=== PATIENT | male | born 1980 ===

== ENCOUNTER → 2018-04-02 | Outpatient (CLI) | payer OTHER ==
[~2018-04-02] MED LIST: MELA3TAB2 PO; METH27TA5 PO
--- NOTE | 2018-04-04 04:17 | PAIN ---
DATE OF SERVICE: 04/03/2018 INITIAL CONSULTATION FOR PAIN CLINIC CHIEF COMPLAINT: Low back and left lower extremity pain. HISTORY OF PRESENT ILLNESS: This is a 38-year-old male who presents with history of pain for about 18 months, not a result of any specific injury or action he is aware of, but pain in the low back, left lower extremity, mostly in the left posterior gluteus, posterior lateral thigh, lateral anterior thigh, medial thigh, medial lower leg on the left side, is worse with walking, standing, change in positions, describes it as constant, sharp, stabbing, throbbing, shooting, radiating, changes during the day, worse with activity, can be debilitating when it flares up. The patient reports it awakens him from sleep once or twice at night, does not affect his bowel or bladder control, does affect his ability to walk fairly significantly. He is not using any assistive devices, however, to ambulate. The patient has had chiropractic treatment as well as some exercises that he does every day and reports does feel better after chiropractic manipulations, but only for about 3-4 hours. The patient has tried Tylenol, Flexeril and another muscle relaxant. He is not sure of the muscle relaxant, were not significantly helpful. Tylenol No. 3 does help to a moderate extent. The patient reports a disability rating from 0-10, 10 being the worst, is a 6 with family and home responsibilities, social activity and self-care; 7 with recreation; 7-8 with occupation; 4 with sexual behavior; and 4 with life support activities. The patient did have a MRI of lumbar spine showing mild diffuse disk bulge at L4-L5, small posterior annular fissures without significant stenosis. L5-S1 looks normal. The patient reports significant fatigability with the lower extremity on the left with walking especially, but no overt motor loss. PAST MEDICAL HISTORY: Significant for hearing loss, left ear; arthritis; occasional incontinence. PREVIOUS SURGERY: Include vasectomy. CURRENT MEDICATIONS: Include melatonin and methylphenidate. ALLERGIES: THE PATIENT NOTED TO BEE STINGS AND WASP STINGS. FAMILY HISTORY: Significant for arthritis and diabetes. SOCIAL HISTORY: The patient does not smoke, drinks alcohol 1-4 beverages about twice a week to 3 times a week, but he does not use any illegal, illicit or recreational drugs, does use chewing tobacco. He is , lives with his spouse, has 4 children living at home, lives at [place], [place], has active duty currently. REVIEW OF SYSTEMS: The patient's review of systems is positive for those items mentioned in history of present illness. All systems reviewed, otherwise negative. It is complete, full and well documented on the patient's chart. PHYSICAL EXAMINATION: VITAL SIGNS: The patient's blood pressure is 120/68, pulse 70, respirations 16, temperature is 98.3 degrees Fahrenheit, height is 70 inches, weighs 210 pounds. GENERAL: The patient is awake, alert, oriented, appropriate, very pleasant demeanor. HEENT: Shows normocephalic, atraumatic. Extraocular movements are intact and symmetrical. Oral cavity: Mucous membranes moist and pink. Dentition is intact. NECK: Shows anterior throat supple without palpable lymphadenopathy noted. Swallow reflex is symmetrical. CHEST: Shows normal on inspection. Breath sounds clear to auscultation bilaterally. HEART: Shows S1, S2 clear. No murmurs auscultated. ABDOMEN: Soft, nontender, nondistended. No palpable organomegaly is noted. No rebound or guarding demonstrated. BACK: Shows spine grossly in the midline. Normal appearing thoracic kyphosis and lumbar lordotic curvature. Lumbar paraspinous muscle shows symmetrical on inspection. On palpation shows some mild tenderness, but only diffusely in the middle and lower distribution of paraspinous muscles without radiation, without atrophy, hypertrophy or trigger points. The patient has no tenderness over the spinous processes, sacrum or sacroiliac regions. The patient has good rotational motion of lumbar spine, both laterally as well as extension and flexion without difficulty or pain reported. EXTREMITIES: Lower extremities show deep tendon reflexes 2+ in the patellar, 1+ tendo-calcaneus tendons. Motor exam is strong with 5/5 dorsiflexion, extension, quadriceps and hamstring flexion. He does have a positive straight leg raise on the left at about 40 degrees, decreased with knee flexion. Right side is negative. Peripheral pulses are 1+ posterior tibia. No peripheral edema is noted. Gaenslen's and Zachary's maneuvers are negative bilaterally as well. The patient is able to stand, stand on his toes without difficulty or loss of balance, walks with a normal appearing gait, does not appear to favor the right or left lower extremity significantly, not using any assistive devices to ambulate currently. SKIN: The patient's skin shows warm and dry, good turgor. No edema. No sores, rashes or bruising. IMPRESSION: This is a 38-year-old male with: 1. Approximate 18-month history of increasing pain, low back, left lower extremity in a radicular fashion following L4-L5 dermatomal distribution. 2. History of arthritis. 3. MRI scan of the lumbar spine as noted. PLAN: Options were discussed with the patient including conservative medical management, physical therapy, interventional techniques and he has done physical therapies, he is doing exercise currently, will like to pursue interventional techniques. We discussed a lumbar epidural steroid injection using description as well as anatomical models to describe the procedure. The patient would like to proceed with this. We will wait for preauthorization with his insurance provider. In the meantime, we will try Medrol Dosepak. The patient was given instruction as well as side effects to be aware of with the medication. We will follow up after preauthorization. We will plan on lumbar epidural steroid injection at that time. DAVIE RAZA MD DR: NEVILLE/alicia JOB#: [id number] / [id number]
== END | disposition home or self-care (01) ==
LOC: PNCL 14:03
PROVIDERS: ATTEND Anesthesiology
DX: M54.5 Low back pain (principal); M79.605 Pain in left leg; M19.90 Unspecified osteoarthritis, unspecified site
CPT/HCPCS: G0463

== ENCOUNTER → 2018-04-16 | Outpatient (CLI) | payer OTHER ==
[~2018-04-16] MED LIST changes: +IOHEXOL 180 MG/ML 10 ML VIAL. ONE; +methylPREDNISolone ACETATE 40 MG/ML VIAL. ONE; +methylPREDNISolone ACETATE 80 MG/ML VIAL. ONE
--- NOTE | 2018-04-16 10:23 | PAIN ---
DATE OF SERVICE: 04/16/2018 DIAGNOSES: Lumbar radiculopathy with lumbar degenerative disk disease. HISTORY OF PRESENT ILLNESS: The patient is a 38-year-old male who returns for followup status post initial evaluation and preauthorization for lumbar epidural steroid injection. The patient has obtained that now, would like to proceed, still pain in the low back and left lower extremity as it was previously, posterior gluteus, posterior lateral thigh, lateral anterior thigh, medial thigh, medial lower leg on the left side. The patient reports it is across the back as well, some on the right, but mostly in the left side. The patient reports it is worse with walking, standing, change in positions. The patient has not been working out much in the past month because of the pain and is anxiously wanting to start that again. The patient reports pain anywhere from a 6 to an 8 on a scale of 10 at its worst, 6-7 on average and a 4-5 at its least and is a 6 today. The patient reports it is radiating, becoming more constant, aching, tight, shooting in the low back and left lower extremity as described. The patient reports it awakens him from sleep, but only about every 6-7 hours, worse with walking, standing, changing positions, better with sitting or lying down. The patient reports no new motor or sensory deficits, no new bowel or bladder incontinence or other complaints. PHYSICAL EXAMINATION: VITAL SIGNS: The patient's blood pressure 138/101, pulse 85, respirations 16, temperature is 98.2 degrees Fahrenheit, height 70 inches, weight is 213 pounds. GENERAL: The patient is awake, alert, oriented, appropriate, very pleasant demeanor. HEENT: Head shows normocephalic, atraumatic. Extraocular movements are intact and symmetrical. Oral cavity shows mucous membranes moist and pink. Dentition is intact. NECK: Shows anterior throat supple without palpable lymphadenopathy noted. Swallow reflex symmetrical. CHEST: Shows normal with inspection. Breath sounds clear to auscultation bilaterally. HEART: Shows S1, S2 clear. No murmurs auscultated. ABDOMEN: Soft, nontender, nondistended. No palpable organomegaly is noted. No rebound or guarding demonstrated. BACK: Shows spine grossly in the midline. Normal appearing thoracic kyphosis and lumbar lordotic curvature. Lumbar paraspinous muscle shows symmetrical on inspection, with palpation shows some moderate tenderness but only diffusely bilaterally without radiation. EXTREMITIES: Lower extremities show deep tendon reflexes 2+ in the patellar, 1+ tendo calcaneus tendons. Motor exam is strong with 5/5 dorsiflexion, extension and equal. Peripheral pulses are 1+ posterior tibia. No peripheral edema is noted bilaterally. Options were discussed with the patient. The patient's old chart was reviewed as his current medication regimen updated. Current review of systems updated today as well. We will proceed with a lumbar epidural steroid injection today with fluoroscopic guidance. Risks were again discussed including, but not limited to bleeding, infection, possibility of epidural hematoma, subsequent neurologic compromise, dural puncture, headaches, spinal cord and/or nerve damage, side effects of steroid medication and poor results regarding pain control. The patient understands and wished to proceed. The patient will return to clinic in approximately 2 weeks for followup, was counseled on return appointment, activity level and side effects to be aware of. DIAGNOSES: Lumbar radiculopathy with lumbar degenerative disk disease. PROCEDURE: Lumbar epidural steroid injection, translaminar approach at the L4-5 level using C-arm fluoroscopic guidance under sterile prep and drape using local anesthetic. MEDICATION INJECTED: A total of 120 mg Depo-Medrol, plus 10 mL preservative-free normal saline and 2 mL of Isovue for contrast. CONDITION AT DISCHARGE: Stable. The patient tolerated procedure well, had no complications. DAVIE RAZA MD DR: NEVILLE/alicia JOB#: [id number] / [id number]
== END | disposition home or self-care (01) ==
LOC: PNCL 08:43
PROVIDERS: ATTEND Anesthesiology
DX: M51.16 Intervertebral disc disorders with radiculopathy, lumbar region (principal); Z91.030 Bee allergy status
CPT/HCPCS: 62323; J1030; J1040; Q9965

== ENCOUNTER → 2018-05-01 | Outpatient (CLI) | payer OTHER ==
[~2018-05-01] MED LIST changes: -IOHEXOL 180 MG/ML 10 ML VIAL. ONE; -methylPREDNISolone ACETATE 40 MG/ML VIAL. ONE; -methylPREDNISolone ACETATE 80 MG/ML VIAL. ONE
--- NOTE | 2018-05-01 11:42 | PAIN ---
DATE OF SERVICE: 05/01/2018 PROGRESS NOTE FOR PAIN CLINIC DIAGNOSIS: Lumbar radiculopathy with lumbar degenerative disk disease. HISTORY OF PRESENT ILLNESS: The patient is a 38-year-old male who returns for followup status post lumbar epidural steroid injection x 1. The patient reports about 70% improvement in the low back, left lower extremity since the injection, doing quite well with increasing his activity, greater distances walking, doing work activities as well as home activities. He was shoveling some snow when we had some snow the other day and this causes pain to be more noticeable but still significantly improved. The patient reports it is a 4-5 on a scale of 10 at its worst, 3-4 on average, at 2-4 on its least and is a 3 today. The patient reports it is an aching, dull, tight, shooting in the left lower extremity, mostly in the posterior lateral thigh, lateral anterior thigh, medial thigh, medial lower leg with standing or walking more than 20-30 minutes. The patient reports that it occasionally awakens him from sleep but not every night, does not have any new motor or sensory deficits and no new bowel or bladder incontinence or other complaints. The patient reports still doing well. It has been about 3 weeks now since the injection with still significant improvement but not completely gone. PHYSICAL EXAMINATION: VITAL SIGNS: The patient's blood pressure 135/97, pulse 96, respirations 16 and temperature 98.3 degrees Fahrenheit. Weight is 215 pounds. GENERAL: The patient is awake, alert, oriented, appropriate and very pleasant demeanor. HEENT: Head shows normocephalic and atraumatic. Extraocular movements are intact and symmetrical. Oral cavity, mucous membranes are moist and pink. Dentition is intact. NECK: Shows anterior throat supple without palpable lymphadenopathy noted. Swallow reflex is symmetrical. CHEST: Shows normal with inspection. Breath sounds are clear to auscultation bilaterally. HEART: Shows S1 and S2 clear. No murmurs auscultated. ABDOMEN: Soft, nontender and nondistended. No palpable organomegaly is noted. No rebound or guarding demonstrated. BACK: Shows spine grossly in the midline. Normal appearing thoracic kyphosis and lumbar lordotic curvature. Lumbar paraspinous muscle shows symmetrical on inspection and with palpation shows some mild tenderness but only diffusely in the middle and lower distribution of the paraspinous muscles without radiation. No trigger points and no asymmetry. The patient has no tenderness over the spinous processes, sacrum or sacroiliac regions. EXTREMITIES: Lower extremities show deep tendon reflexes at 2+ in the patellar, 1+ tendo-calcaneus tendons are equal. Motor exam is strong with 5/5 dorsiflexion, extension, quadriceps and hamstring flexion. Peripheral pulses are 1+ posterior tibial. No peripheral edema is noted bilaterally. Options were discussed with the patient. The patient's old chart was reviewed as well as his current medication regimen updated. Current review of systems is updated today as well and we will proceed with a preauthorization for a second lumbar epidural steroid injection as he is doing very well with the first injection about 70% improvement for the first 3 weeks but still returning pain in the L4-L5 dermatomal distribution of the left lower extremity. We will preauthorize for L4-L5 translaminar lumbar epidural steroid injection. The patient will return once this is authorized in approximately 1 week. DAVIE RAZA MD DR: NEVILLE/alicia JOB#: [id number] / [id number]
== END | disposition home or self-care (01) ==
LOC: PNCL 08:57
PROVIDERS: ATTEND Anesthesiology
DX: M51.16 Intervertebral disc disorders with radiculopathy, lumbar region (principal)
CPT/HCPCS: G0463

== ENCOUNTER → 2018-05-15 | Outpatient (CLI) | payer OTHER ==
[~2018-05-15] MED LIST changes: +IOHEXOL 180 MG/ML 10 ML VIAL. ONE; +methylPREDNISolone ACETATE 40 MG/ML VIAL. ONE; +methylPREDNISolone ACETATE 80 MG/ML VIAL. ONE
--- NOTE | 2018-05-15 18:29 | PAIN ---
DATE OF SERVICE: 05/15/2018 DIAGNOSES: Lumbar radiculopathy with lumbar degenerative disk disease. HISTORY OF PRESENT ILLNESS: The patient is a 38-year-old male who returns for followup status post lumbar epidural steroid injection x 1 with about 70% improvement. The patient reports the pain is returning now in the low back and left lower extremity. The patient reports no new motor or sensory deficits, no new bowel or bladder incontinence, but still significant pain increased in the low back radiating to the lower extremity, posterior gluteus, posterior lateral thigh, lateral anterior thigh, medial thigh and especially the lateral left thigh. The patient reports it is a 6-7 at all times, average, worst and at least and is a 6-7 today. The patient reports it is aching, dull, tight, shooting pain in the low back and left leg as it was, previously, the patient reports it is better with sitting or lying down, worse with standing, walking, changing positions, bending, crouching or getting up from a sitting position he can notice it as well, but he reports it does not awaken him from sleep at night. The patient reports no new motor or sensory deficits, no new bowel or bladder incontinence or other complaints. PHYSICAL EXAMINATION: VITAL SIGNS: The patient's blood pressure 162/96, pulse 98, respirations are 18, temperature is 98.5 degrees Fahrenheit. Height is 70 inches, weight is 215 pounds. GENERAL: The patient is awake, alert, oriented, appropriate, very pleasant demeanor. HEENT: Head shows normocephalic, atraumatic. Extraocular movements are intact and symmetrical. Oral cavity: Mucous membranes moist and pink. Dentition is intact. NECK: Shows anterior throat supple without palpable lymphadenopathy noted. Swallow reflex symmetrical. CHEST: Shows normal on inspection. Breath sounds clear to auscultation bilaterally. HEART: Shows S1, S2 clear. No murmurs auscultated. ABDOMEN: Soft, nontender, nondistended. No palpable organomegaly is noted. No rebound or guarding demonstrated. BACK: Shows spine grossly in the midline. Normal appearing thoracic kyphosis and lumbar lordotic curvature. Lumbar paraspinous muscle shows symmetrical on inspection. On palpation shows some moderate tenderness diffusely, but only diffusely with radiation without atrophy, hypertrophy or asymmetry. The patient has good rotational motion of lumbar spine, both laterally as well as extension and flexion without difficulty. EXTREMITIES: Lower extremities show deep tendon reflexes 2+ in the patellar and 1+ tendo calcaneus tendons are equal. Motor exam is strong with 5/5 dorsiflexion, extension, quadriceps and hamstring flexion and symmetrical. Peripheral pulses are 1+ posterior tibial. No peripheral edema is noted bilaterally. PLAN: Options were discussed with the patient. The patient's old chart was reviewed as well as his current medication regimen updated. Current review of systems updated today as well. We will proceed with a second in the series of lumbar epidural steroid injection today with fluoroscopic guidance. Risks were again discussed including, but not limited to bleeding, infection, possibility of epidural hematoma, subsequent neurologic compromise, dural puncture, headaches, spinal cord and/or nerve damage, side effects of steroid medication and poor results regarding pain control. The patient understands and wished to proceed. The patient to return to clinic in approximately 2 weeks for followup, was counseled as to return appointment, activity level and side effects to be aware of. DIAGNOSES: Lumbar radiculopathy with lumbar degenerative disk disease. PROCEDURE: Lumbar epidural steroid injection, translaminar approach at L4-L5 level using C-arm fluoroscopic guidance under sterile prep and drape using local anesthetic. MEDICATION INJECTED: A total of 120 mg Depo-Medrol plus 10 mL of preservative-free normal saline and 2 mL of Isovue for contrast. CONDITION AT DISCHARGE: Stable. The patient tolerated procedure well, had no complications. DAVIE RAZA MD DR: NEVILLE/alicia JOB#: [id number] / [id number]
== END | disposition home or self-care (01) ==
LOC: PNCL 08:39
PROVIDERS: ATTEND Anesthesiology
DX: M51.16 Intervertebral disc disorders with radiculopathy, lumbar region (principal); Z98.890 Other specified postprocedural states; Z91.030 Bee allergy status
CPT/HCPCS: 62323; J1030; J1040; Q9965

== ENCOUNTER → 2018-06-01 | Outpatient (CLI) | payer OTHER ==
[~2018-06-01] MED LIST changes: -IOHEXOL 180 MG/ML 10 ML VIAL. ONE; -methylPREDNISolone ACETATE 40 MG/ML VIAL. ONE; -methylPREDNISolone ACETATE 80 MG/ML VIAL. ONE
--- NOTE | 2018-06-01 22:12 | PAIN ---
DATE OF SERVICE: 06/01/2018 PROGRESS NOTE FOR PAIN CLINIC DIAGNOSES: Lumbar radiculopathy with lumbar degenerative disk disease. HISTORY OF PRESENT ILLNESS: The patient is a 38-year-old male who returns for followup status post lumbar epidural steroid injection x 2. The patient reports about 70% improvement after the last injection, doing quite a bit better. He has been increasing activity with greater ease and comfort, walking greater distances, doing work activities, household activities, doing a lot of house maintenance as well, which he has been doing very comfortably. The patient reports he is sleeping well at night. It does not awaken him from sleep at night. The patient reports he has been very pleased with his progress. Reports still some pain in the low back into the left lower extremity as it was previously, in the lateral thigh, anterior thigh, medial lower leg, also some minor pain in the right lower leg in the calf. The patient reports the pain in the back and leg is aching, sharp, tight in the low back, specifically and radiating into the lower extremities is noted. The patient reports it is a 6-7 on a scale of 10 at average, at worst and at least and is a 6 today. The patient reports no new motor or sensory deficits, no new bowel or bladder incontinence or other complaints. PHYSICAL EXAMINATION: VITAL SIGNS: The patient's blood pressure is 142/103, pulse 99, respirations 16, temperature 98.4 degrees Fahrenheit. Height is 70 inches, weight is 213 pounds. GENERAL: The patient is awake, alert, oriented, appropriate, very pleasant demeanor. HEENT: Head is normocephalic, atraumatic. Extraocular movements are intact and symmetrical. Oral cavity, mucous membranes are moist and pink. Dentition is intact. NECK: Shows anterior throat supple without palpable lymphadenopathy noted. Swallow reflex symmetrical. CHEST: Shows normal with inspection. Breath sounds are clear to auscultation bilaterally. HEART: Shows S1, S2 clear. No murmurs auscultated. ABDOMEN: Soft, nontender, nondistended. No palpable organomegaly is noted. No rebound or guarding demonstrated. BACK: Shows spine grossly in the midline. Normal appearing thoracic kyphosis and lumbar lordotic curvature. Lumbar paraspinous muscle shows symmetrical on inspection, on palpation shows some moderate tenderness diffusely, but without significant radiation. The patient shows good rotational motion of lumbar spine both laterally as well as extension and flexion. EXTREMITIES: Lower extremities show deep tendon reflexes 2+ in the patellar, 1+ in tendo calcaneus tendons are equal. Motor exam is strong with 5/5 dorsiflexion, extension, quadriceps and hamstring flexion and equal as well. The patient's peripheral pulses are 1+ posterior tibial. No peripheral edema is noted bilaterally. The patient does have mild straight leg raise on the left side, only at about 45 degrees, is decreased completely with knee flexion, right side is negative. Options were discussed with the patient. The patient's old chart was reviewed as his current medication regimen updated. Current review of systems updated today as well, and we will proceed with preauthorization for a third lumbar epidural steroid injection. He is doing quite well after the second injection. The patient will continue doing strengthening and stretching exercises as well as heat application to the low back. We will wait for preauthorization, and the patient to return for third lumbar epidural steroid injection at that time. DAVIE RAZA MD DR: NEVILLE/alicia JOB#: [id number] / [id number]
== END | disposition home or self-care (01) ==
LOC: PNCL 09:03
PROVIDERS: ATTEND Anesthesiology
DX: M51.16 Intervertebral disc disorders with radiculopathy, lumbar region (principal)
CPT/HCPCS: G0463

== ENCOUNTER → 2018-06-15 | Outpatient (CLI) | payer OTHER ==
[~2018-06-15] MED LIST changes: +IOHEXOL 180 MG/ML 10 ML VIAL. ONE; +methylPREDNISolone ACETATE 40 MG/ML VIAL. ONE; +methylPREDNISolone ACETATE 80 MG/ML VIAL. ONE
--- NOTE | 2018-06-16 04:12 | PAIN ---
DATE OF SERVICE: 06/15/2018 PROGRESS NOTE FOR PAIN CLINIC DIAGNOSES: Lumbar radiculopathy with lumbar degenerative disk disease. HISTORY OF PRESENT ILLNESS: The patient is a 38-year-old male who returns for followup status post lumbar epidural steroid injection x 2. The patient reports he did very well with about 70% improvement initially after the last injection, now still about 50% improvement overall in low back and left lower extremity. He still has some pain with walking, standing, changing positions. Still doing some running not every day, but is tolerating it much better. The patient reports he is sleeping better at night, standing for greater longer periods. No new motor or sensory deficits, no new bowel or bladder incontinence. The patient reports it is 6-7 on a scale of 10 at all times, worst, least and average and is a 6-7 today. The patient reports it is radiating into the low back, left lower extremity, lateral anterior thigh, anterior medial thigh as well, aching and tight in the back as well. The patient reports no new changes, still helping with walking, work activities, household activities, especially prolonged standing is much more comfortable. PHYSICAL EXAMINATION: VITAL SIGNS: The patient's blood pressure is 133/104, pulse 116, respirations 16, temperature is 98.0 degrees Fahrenheit. Height is 70 inches, weight is 217 pounds. GENERAL: The patient is awake, alert, oriented, appropriate, very pleasant demeanor. HEENT: Head shows normocephalic, atraumatic. Extraocular movements are intact and symmetrical. Oral cavity: Mucous membranes moist and pink. Dentition is intact. NECK: Shows anterior throat supple without palpable lymphadenopathy noted. Swallow reflex symmetrical. CHEST: Shows normal with inspection. Breath sounds clear to auscultation bilaterally. HEART: Shows S1, S2 clear. No murmurs auscultated. ABDOMEN: Soft, nontender, nondistended. No palpable organomegaly is noted. No rebound or guarding demonstrated. BACK: Shows spine grossly in the midline. Normal appearing thoracic kyphosis and lumbar lordotic curvature. Lumbar paraspinous muscle shows symmetrical with inspection, on palpation shows some moderate diffuse tenderness in the low lumbar distribution, but only moderately. The patient shows good rotational motion of lumbar spine both laterally as well as extension and flexion without difficulty. EXTREMITIES: Lower extremities show deep tendon reflexes at 2+ in the patellar, 1+ in the tendo calcaneus tendons. Motor exam is strong with 5/5 dorsiflexion, extension, quadriceps and hamstring flexion equal. Peripheral pulses are 1+ posterior tibia. No peripheral edema is noted. Options were discussed with the patient. The patient's old chart was reviewed as his current medication regimen updated. Current review of systems updated today as well. We will proceed with third in the series of lumbar epidural steroid injection today with fluoroscopic guidance. Risks were again discussed including, but not limited to, bleeding, infection, possibility of epidural hematoma, subsequent neurologic compromise, dural puncture, headaches, spinal cord and/or nerve damage, side effects of steroid medication and poor results regarding pain control. The patient understands and wished to proceed. The patient to return to the clinic in approximately 2 weeks for followup. He was counseled as to return appointment, activity level and side effects to be aware of. DIAGNOSIS: Lumbar radiculopathy with lumbar degenerative disk disease. PROCEDURE: Lumbar epidural steroid injection, translaminar approach at L4-L5 level using C-arm fluoroscopic guidance under sterile prep and drape using local anesthetic. MEDICATION INJECTED: A total of 120 mg Depo-Medrol plus 10 mL of preservative-free normal saline and 2 mL of Isovue for contrast. CONDITION AT DISCHARGE: Stable. The patient tolerated the procedure well, had no complications. DAVIE RAZA MD DR: NEVILLE/alicia JOB#: [id number] / [id number]
== END | disposition home or self-care (01) ==
LOC: PNCL 08:55
PROVIDERS: ATTEND Anesthesiology
DX: M51.16 Intervertebral disc disorders with radiculopathy, lumbar region (principal); Z91.030 Bee allergy status
CPT/HCPCS: 62323; J1030; J1040; Q9965